=== PATIENT | female | born 1960 | race Caucasian/White ===

== ENCOUNTER 2016-11-12 01:22 | Day surgery (SDC) | payer OTHER ==
[~2016-11-12] VITALS: Ht 160 cm; Wt 67.1 kg
[~2016-11-12 01:22] MED LIST: AMLO10TA3 PO; ATRV10T PO; CHOL400T3 PO; ESTR1PAT93 TD; GABA600T2 PO; MULT-1018 PO
[2016-11-12] MEDS ORDERED: 0.9% Sodium Chloride 1,000 ML IV PRN (09:13)
[2016-11-12] MEDS ORDERED: Sodium Chloride LOK Flush 10 mL Syringe IV PRN (09:15)
[2016-11-12] MEDS ORDERED: fentaNYL-PF 50 mCg/mL 2 mL Inj IVPUSH PRN (09:15)
[2016-11-12 09:17] VITALS: BP 134/91; PULSE 71; RESP 14; O2SAT 98
[2016-11-12 10:05] VITALS: BP 121/81; PULSE 75; RESP 16; O2SAT 98
[2016-11-12 10:20] VITALS: BP 114/49; PULSE 85; RESP 12; O2SAT 98
--- NOTE | 2016-11-12 15:01 | ENDO ---
[address] [address] ENDOSCOPY PROCEDURE PATIENT: BETTINA FORDE : 1960 MR#: [id number] ADMIT: 11/12/2016 JOB ID: [id number] PRIMARY PROVIDER: Dino Tolliver MD PROCEDURE: Colonoscopy with cold forceps polypectomy. INDICATION: A 56-year-old female who reports a change in bowel habit with symptoms of left upper quadrant pain of uncertain etiology. EQUIPMENT: PCFH-180AL SEDATION: 5 mg Versed and 100 mcg fentanyl. COMPLICATIONS: None identified. BOWEL PREPARATION: Excellent. PROCEDURE IN DETAIL: After the risks and benefits were explained, written and verbal informed consent was obtained. The patient was brought into the endoscopy suite and placed into the left lateral decubitus position. Sedation was achieved as above and a digital rectal examination was accomplished. No significant pathology appreciated. Minimal internal hemorrhoids. The scope was introduced into the rectum and advanced to the cecum as identified by the appendiceal orifice and ileocecal valve. The terminal ileum was briefly accessed. The scope then slowly withdrawn to carefully examine the mucosa for any defects or lesions. Multiple direct views were made through the dentate line for exclusion of pathology. The colon was decompressed. The scope removed. The patient tolerated the procedure well. FINDINGS: Rather twisty navigation through the left side. There was a diminutive, probably hyperplastic polyp removed with cold forceps from the rectosigmoid region. No other significant pathology was appreciated throughout. ENDOSCOPIC DIAGNOSIS: Diminutive rectosigmoid polyp. RECOMMENDATIONS: No obvious explanation was made today for the patient's symptoms. She will be offered diagnostic CT scan for further evaluation here. Follow up in my office on the results. cc: Dino Tolliver MD
--- NOTE | 2016-11-13 11:38 | PATH ---
SURGICAL PATHOLOGY Attending Physician:Corazon Hdz CASE STATUS: Signed Out PATIENT NAME: BETTINA FORDE PID: [id number] : 1960 DATE COLLECTED:11/12/2016 16:42 SPECIMEN: Colon, Biopsy CLINICAL HISTORY: 1. RECTAL SIGMOID COLON POLYP FINAL DIAGNOSIS: 1.RECTOSIGMOID COLON POLYP: HYPERPLASTIC POLYP. ICD10 CODE K62.1 GROSS DESCRIPTION: The specimen is received in one formalin filled container labeled with the patient's name, sublabeled "rectal sigmoid colon polyp" and consists of a 0.1 x 0.1 x 0.1 CM portion of tissue which is entirely submitted in one cassette. 11/12/2016 DAC MICRO DESCRIPTION: See diagnosis. ICD-9 CODES: CPT CODES: 1: 79330 Electronically Signed Out Kim Contreras MD [facility] [address], [place] [address] Technical component performed at [facility], [address] [place] [address] Ave[address], [place], [address]
== END 2016-11-12 23:59 | disposition home or self-care (01) ==
LOC: END 01:22
PROVIDERS: ATTEND Internal Medicine Gastroenterology
DX: K62.1 Rectal polyp (principal); K64.8 Other hemorrhoids; R19.4 Change in bowel habit; R10.12 Left upper quadrant pain; Z79.890 Hormone replacement therapy
CPT/HCPCS: 45380; 99153; G0500; J2250; J3010; J7030

== ENCOUNTER 2016-12-10 00:40 | Day surgery (SDC) | payer OTHER ==
[2016-12-10] MEDS ORDERED: fentaNYL-PF 50 mCg/mL 2 mL Inj IVPUSH PRN (07:55)
[2016-12-10] MEDS ORDERED: 0.9% Sodium Chloride 1,000 ML IV PRN (07:55)
[2016-12-10] MEDS ORDERED: Sodium Chloride LOK Flush 10 mL Syringe IV PRN (07:55)
== END 2016-12-10 23:59 | disposition home or self-care (01) ==
LOC: END 00:40
PROVIDERS: ATTEND Internal Medicine Gastroenterology
DX: R10.12 Left upper quadrant pain (principal); Z53.8 Procedure and treatment not carried out for other reasons

== ENCOUNTER 2017-01-07 08:30 | Day surgery (SDC) | payer OTHER ==
[~2017-01-07] VITALS: Ht 160 cm; Wt 68.0 kg
[~2017-01-07 08:30] MED LIST changes: +0.9% Sodium Chloride 1,000 ML IV SCH; +Sodium Chloride LOK Flush 10 mL Syringe IV PRN; +fentaNYL-PF 50 mCg/mL 2 mL Inj IVPUSH PRN
[2017-01-07 08:40] VITALS: BP 131/97; PULSE 70; RESP 14; O2SAT 97
[2017-01-07 09:44] VITALS: BP 121/83; PULSE 80; RESP 16; O2SAT 97
[2017-01-07 09:52] VITALS: BP 127/82; PULSE 78; RESP 16; O2SAT 95
--- NOTE | 2017-01-07 14:06 | ENDO ---
[address] [address] ENDOSCOPY PROCEDURE PATIENT: BETTINA FORDE : 1960 MR#: [id number] ADMIT: 01/07/2017 JOB ID: [id number] DATE OF SERVICE: 01/07/2017 PRIMARY PROVIDER: Dino Tolliver MD. PROCEDURE: Esophagogastrojejunoscopy. INDICATIONS: A 56-year-old female with a history of gastric bypass in 2006. She has been experiencing left upper quadrant pain that is quite sensitive to fat. Colonoscopy did not explain her symptoms. EGD is thus pursued. EQUIPMENT: GIF-H180J. SEDATION: 5 mg Versed, 100 mcg fentanyl. COMPLICATIONS: None identified. PROCEDURE INFORMATION: After the risks and benefits were explained, written and verbal informed consent was obtained. The patient was brought into the endoscopy suite and placed into the left lateral decubitus position. Sedation was achieved using the above-stated medications with the addition of oxygen via nasal cannula. The scope was introduced into the mouth through the bite block, and advanced under direct visualization through the esophagus, gastric pouch and then about 20 cm downstream in the efferent limb. The scope was slowly withdrawn to carefully examine the mucosa for any defects or lesions. The stomach was decompressed. The scope removed from the patient who tolerated the procedure well. FINDINGS: 1. Esophagus: This appeared normal. The GE junction was at 36 cm from the incisors. No acute erosive changes. No strictures. No mass lesions. 2. Stomach: The patient had a normal-sized gastric pouch. I did not appreciate any ulceration or significant mucosal pathology. Her gastrojejunostomy anastomosis was widely patent without any significant erythema or ulceration on either side. 3. Small bowel. I could not find an afferent limb. This looked like it an end anastomosis and we, again, did not identify any mucosal features to account for the patient's symptoms and examined the small bowel for approximately 20 cm or so beyond the anastomosis. ENDOSCOPIC DIAGNOSIS: Normal gastric bypass anatomy. RECOMMENDATIONS: 1. In that the patient's symptoms seem to be exacerbated by fatty content of meals even though the location of her pain would be very atypical for gallbladder, I think HIDA scan imaging would be an appropriate next step. 2. Follow up in my office following HIDA scan to review.
== END 2017-01-07 23:59 | disposition home or self-care (01) ==
LOC: END 08:30
PROVIDERS: ATTEND Internal Medicine Gastroenterology
DX: R10.12 Left upper quadrant pain (principal); K63.89 Other specified diseases of intestine; Z98.84 Bariatric surgery status
CPT/HCPCS: 43235; G0500; J2250; J3010; J7030